=== PATIENT | female | born 1975 | race Caucasian/White ===

== ENCOUNTER 2016-09-06 19:14 | Emergency (ER) | payer MEDICAID ==
[2015-03-12 09:54] VITALS: BMI 22.0
[~2016-09-06 19:14] MED LIST: ATIVAN0.5 MG PO; CYCLOBENZAPRINE10 MG PO; DESERYL100 MG PO; MACRODANTIN100 MG PO; NEURONTIN 300300 MG PO; PERCOCET 5-3251 TAB PO; PHENAZOPYRIDIN200 MG PO; TYLENOL W/CODEI1 TAB PO
[2016-09-06 20:23] LABS: BASOPHILS 0.7 % (0.0-2.0); EOSINOPHILS 2.5 % (0-7); HEMATOCRIT 35.1 % (36.0-48.0); HEMOGLOBIN 11.7 g/dL (12-16); IMMATURE GRANULOCYTES 0.5 % (0-5); LYMPHOCYTES 31.7 % (15-50); MCH 32.3 pg (26.0-34.0); MCHC 33.3 g/dL (31.0-37.0); MEAN PLATELET VOLUME 10.6 fL (7.4-10.4); MONOCYTES 8.3 % (2-11); NEUTROPHILS 56.3 % (40-80); PLATELET COUNT 274 10x3/uL (130-400); RBC 3.62 10x6/uL (4.00-5.40); RDW 13.5 % (11.5-14.5); WBC 8.6 10x3/uL (4.8-10.8)
== END 2016-09-06 21:45 | disposition home or self-care (01) ==
LOC: D.ER 19:14
PROVIDERS: Emergency Medicine
DX: J06.9 Acute upper respiratory infection, unspecified (principal); F17.200 Nicotine dependence, unspecified, uncomplicated; F41.9 Anxiety disorder, unspecified

== ENCOUNTER 2017-11-01 09:17 | Emergency (ER) | payer SELFPAY ==
[2015-03-12 09:54] VITALS: BMI 22.0
== END 2017-11-01 11:12 | disposition home or self-care (01) ==
LOC: D.ER 09:17
DX: J20.9 Acute bronchitis, unspecified (principal); F17.200 Nicotine dependence, unspecified, uncomplicated

== ENCOUNTER 2018-04-19 00:53 | Emergency (ER) | payer SELFPAY ==
[~2018-04-19] VITALS: Ht 172.7 cm; Wt 65.9 kg
[2018-04-19 00:56] VITALS: Ht 172.7 cm; Wt 65.9 kg
[2018-04-19] MEDS ORDERED: DICLOFENAC SODI50 MG PO (02:20)
[2018-04-19 02:58] VITALS: BP 139/76
== END 2018-04-19 03:00 | disposition home or self-care (01) ==
LOC: D.ER 00:53
DX: R07.89 Other chest pain (principal); G40.909 Epilepsy, unspecified, not intractable, without status epilepticus; F17.200 Nicotine dependence, unspecified, uncomplicated

== ENCOUNTER 2018-11-04 13:29 | Emergency (ER) | payer SELFPAY ==
[~2018-11-04] VITALS: Ht 172.7 cm; Wt 65.9 kg
[~2018-11-04 13:29] MED LIST changes: +DICLOFENAC SODI50 MG PO
[2018-11-04 13:35] VITALS: Ht 172.7 cm; Wt 65.9 kg
[2018-11-04] MEDS ORDERED: ULTRAM50 MG PO (15:04)
[2018-11-04 16:01] VITALS: BP 137/84
== END 2018-11-04 15:50 | disposition home or self-care (01) ==
LOC: D.ER 13:29
DX: S83.92XA Sprain of unspecified site of left knee, initial encounter (principal); X58.XXXA Exposure to other specified factors, initial encounter; Y93.89 Activity, other specified; Y92.013 Bedroom of single-family (private) house as the place of occurrence of the external cause

== ENCOUNTER 2019-05-30 14:42 | Emergency (ER) | payer OTHER ==
[~2019-05-30] VITALS: Ht 172.7 cm; Wt 65.9 kg
[~2019-05-30 14:42] MED LIST changes: +ULTRAM50 MG PO
[2019-05-30 14:51] VITALS: Ht 172.7 cm; Wt 65.9 kg
[2019-05-30] MEDS ORDERED: VIBRAMYCIN 100100 MG PO (16:35)
[2019-05-30] MEDS ORDERED: VOLTAREN75 MG PO (16:35)
[2019-05-30 17:22] VITALS: BP 126/84
== END 2019-05-30 17:27 | disposition home or self-care (01) ==
LOC: D.ER 14:42
DX: L03.211 Cellulitis of face (principal); F17.210 Nicotine dependence, cigarettes, uncomplicated

== ENCOUNTER 2019-11-13 19:00 | Outpatient (CLI) | payer OTHER ==
[2019-05-30 14:51] VITALS: BMI 22.0
[~2019-11-13 19:00] MED LIST changes: +VIBRAMYCIN 100100 MG PO; +VOLTAREN75 MG PO
== END 2019-11-13 23:59 | disposition home or self-care (01) ==
LOC: D.MAMMO 19:00
PROVIDERS: ATTEND Family Medicine
DX: Z12.31 Encounter for screening mammogram for malignant neoplasm of breast (principal)

== ENCOUNTER 2020-02-07 14:30 | Outpatient (CLI) | payer OTHER ==
[2019-05-30 14:51] VITALS: BMI 22.0
== END 2020-02-07 15:00 | disposition home or self-care (01) ==
LOC: D.MAMMO 14:30
PROVIDERS: ATTEND Family Medicine
DX: R92.8 Other abnormal and inconclusive findings on diagnostic imaging of breast (principal)

== ENCOUNTER 2020-11-14 13:30 | Outpatient (CLI) | payer OTHER ==
[2019-05-30 14:51] VITALS: BMI 22.0
== END 2020-11-14 23:59 | disposition home or self-care (01) ==
LOC: D.MAMMO 13:30
PROVIDERS: ATTEND Family Medicine
DX: R92.8 Other abnormal and inconclusive findings on diagnostic imaging of breast (principal)